=== PATIENT | female | born 1950 | race Caucasian/White ===

== ENCOUNTER 2022-01-03 08:40 | Emergency (ER) | payer OTHER, SELFPAY ==
[2022-01-03] VITALS (11 sets, daily range): BP systolic 128–149; BP diastolic 60–84; PULSE 49–68; RESP 20–22; O2SAT 96–100; BMI 22.1
--- NOTE | 2022-01-03 09:39 | ED.ABDPAIN ---
HPI - Abdominal Pain General Chief Complaint: Abdominal Pain Stated Complaint: Severe stomach pain 16 hours Time Seen by Provider: 01/03/22 09:39 Source: patient Mode of arrival: Ambulatory History of Present Illness HPI narrative: 71F former smoker with history of reflux presents with burning epigastric pain that started soon after eating about 16 hours ago. A few years ago she had similar symptoms and was placed on a 2 week course of a proton pump inhibitor and in the aftermath has been on Pepcid symptomatic Nathalie. For unknown reasons she stopped taking her Pepcid relatively recently and after eating last night her symptoms started very quickly. She tried taking some Pepcid last night and provided no relief. Additionally, she took some Mylanta and also provided no relief. She denies any radiation of her pain and no obvious other provocation or palliation. She has had nausea but denies any vomiting. She has had no change in bowel habits and no urinary complaints. She is not dizzy nor weak or lightheaded has no fever or chills. She otherwise denies any change in medications or diet. Related Data Previous Rx's Medication Instructions Recorded hydrocodone 5 mg-acetaminophen 325 1 tab PO Q4-6H PRN #10 tab 01/03/22 mg tablet ondansetron 4 mg disintegrating 4 mg PO TID-QID PRN #10 tab 01/03/22 tablet pantoprazole 40 mg tablet,delayed 40 mg PO DAILY #30 tab 01/03/22 release (Protonix) Allergies Allergy/AdvReac Type Severity Reaction Status Date / Time hydromorphone [HYDROMORPHONE] Allergy Unknown ITCHING Unverified 01/03/22 09:30 Penicillins [PENICILLINS] Allergy Unknown Unverified 01/03/22 09:30 Review of Systems Review of Systems Narrative: GENERAL: Denies chills, fatigue, malaise, fever, sweats. HEENT: Denies sinus pain, ear pain, sore throat, difficulty swallowing, dizziness. RESPIRATORY: Denies dyspnea, cough, wheezing, hemoptysis, sputum. CARDIOVASCULAR: Denies chest pain, palpitations, orthopnea, edema, GASTROINTESTINAL: See HPI : Denies dysuria, frequency, incontinence, hematuria, urinary retention. MUSCULOSKELETAL: denies weakness, joint pain, or bony pain SKIN: Denies rash, skin lesions, or other NEUROLOGIC: Denies weakness, headache, numbness, change in speech, confusion, seizures, incoordination. PSYCHIATRIC: No concerning psychosocial issues. 12 point review of systems is negative except for those stated above Patient History Social History Smoking Status: Former smoker Smoking Status: Former smoker alcohol intake frequency: 0-2 drinks per day Alcohol type: wine Substance Use Type: does not use Exam Narrative Exam Narrative: GENERAL: [71] year old patient appears stated age. Well-developed patient, in mild distress. HEAD: Atraumatic. Normocephalic. EYES: Pupils equal round and reactive. Extraocular motions intact. No scleral icterus. No injection or drainage. ENT: Nose without bleeding, purulent drainage. Throat without erythema, tonsillar hypertrophy or exudate. Airway patent. NECK: Trachea midline. Non tender CARDIOVASCULAR: Regular rate and rhythm without murmurs, gallops, or rubs. RESPIRATORY: Clear to auscultation. Breath sounds equal bilaterally. No wheezes, rales, or rhonchi. GASTROINTESTINAL: Abdomen soft, mild epigastric tenderness, nondistended. EXTREMITIES: No edema or joint tenderness. BACK: Nontender without deformity or crepitance. No flank tenderness. NEURO: AOx3. SKIN: No rash or erythema of visible areas Initial Vital Signs Initial Vital Signs: Vital Signs Pulse Rate 61 01/03/22 09:15 Respiratory Rate 22 01/03/22 09:15 Blood Pressure 131/84 01/03/22 09:15 Pulse Oximetry 100 01/03/22 09:15 Course Orders Ordered: Discontinued Medications Al Hydrox/Mg Hydrox/Simethicone 20 ml/ Lidocaine HCl 15 ml 0 ml PO NOW ONE Stop: 01/03/22 12:01 Last Admin: 01/03/22 12:15 Dose: 35 ml Documented by: RIVERA Sodium Chloride (Normal Saline 0.9%) 1,000 mls @ 1,000 mls/hr IV BOLUS ONE Stop: 01/03/22 11:08 Last Infusion: 01/03/22 13:22 Dose: 0 mls/hr Documented by: Admin: 01/03/22 10:45 Dose: 1,000 mls/hr Documented by: BLESSING Ketorolac Tromethamine (Ketorolac 30 Mg/Ml Vial) 15 mg IV NOW ONE Stop: 01/03/22 12:01 Last Admin: 01/03/22 12:28 Dose: 15 mg Documented by: RIVERA Pantoprazole Sodium (Pantoprazole 40 Mg Vial) 40 mg IV NOW ONE Stop: 01/03/22 10:10 Last Admin: 01/03/22 10:45 Dose: 40 mg Documented by: BLESSING Vital Signs Vital signs: Vital Signs - 8 hr 01/03/22 09:15 Pulse Rate 61 Respiratory Rate 22 Blood Pressure 131/84 Pulse Oximetry 100 MDM - Abdominal Pain Lab Data Result diagrams: 01/03/22 10:50 01/03/22 10:50 Labs: Lab Results 01/03/22 01/03/22 Range/Units 10:50 10:50 WBC 6.5 (4.5-11.0) X10^3/uL RBC 4.60 (4.0-5.2) X10^6/uL Hgb 13.6 (12.0-16.0) g/dL Hct 40.1 (36-46) % MCV 87.1 (80-100) fL MCH 29.6 (26-34) PG MCHC 34.0 (30-36) % RDW 14.0 (11.6-14.8) % Plt Count 296 (150-400) X10^3/uL Neut % (Auto) 74.4 (50-75) % Lymph % (Auto) 19.4 L (25-40) % Mcintosh % (Auto) 5.4 (3-14) % Eos % (Auto) 0.1 L (2-4) % Baso % (Auto) 0.7 (0-2) % Neut # (Auto) 4900 (8764-9264) /uL Lymph # (Auto) 1300 (8390-9139) /uL Mcintosh # (Auto) 400 (0-900) /uL Eos # (Auto) 0 (0-450) /uL Baso # (Auto) 0 (0-100) /uL Sodium 139 (137-145) mmol/L Potassium 4.0 (3.4-5.1) mmol/L Chloride 101 (98-107) mmol/L Carbon Dioxide 27 (22-32) mmol/L BUN 14 (7-17) mg/dL Creatinine 0.56 (0.52-1.04) mg/dL Estimated GFR > 60 (>60) mL/min BUN/Creatinine Ratio 25.0 H (6-22) Glucose 111 H (80-110) mg/dL Calcium 9.4 (8.4-10.2) mg/dL Total Bilirubin 0.5 (0.2-1.3) mg/dL AST 29 (14-36) IU/L ALT 30 (<35) IU/L Alkaline Phosphatase 85 (38-126) U/L Total Protein 8.3 H (6.3-8.2) g/dL Albumin 4.8 (3.5-5.0) g/dL Globulin 3.5 (1.7-4.1) g/dL Albumin/Globulin Ratio 1.4 (1.0-2.8) Lipase 35 (23-300) U/L Point of care testing: Urine Dip Bedside Urine Glucose Negative Bedside Urine Bilirubin - Negative Bedside Urine Ketone +++ 80 Urine Specific [place] 1.030 Bedside Urine Occult Blood + Bedside Urine pH 6.0 Bedside Urine Protein + 30 Bedside Urine Urobilinogen - Negative Bedside Urine Nitrite - Negative Bedside Urine Leukocytes +/- 15 Esterase Imaging Data US - abdomen: Radiologist's Impression: Launch?[place] [address] Ultrasound Report Signed Patient: Wendy Almendarez MR#: [id number] : 1950 Acct:[id number] Age/Sex: 71 / F Date of Service: 01/03/22 Loc: ED Accession Number: [id number] ?? Procedure: US abdomen limited Ordering Provider: Fabiano Hernandez D.O. PROCEDURE: US ABDOMEN LIMITED ? INDICATIONS:? severe epigastric pain ? TECHNIQUE:? Real-time focused scanning was performed of the abdomen, with image documentation.? ? COMPARISON:? [facility], [place], ABDOMEN COMPLETE, 06/25/2012, 1:08.? [facility], [place], ABDOMEN COMPLETE, 09/11/2014, 10:42.? [facility], [place], ABDOMEN/PELVIS WITH CONTRAST, 06/25/2012, 1:24. ? FINDINGS:? The liver is normal in size and demonstrates no focal lesions. ? No findings of gallstones or sludge are seen.? The gallbladder wall is not thickened, measuring 3 mm or less.? No specific pericholecystic fluid is seen.? The sonographic Dias sign is negative. ? There is no biliary dilatation, the common bile duct measures 6 mm.? ? No significant pancreatic abnormality is seen on these images.? IMPRESSION:? The gallbladder demonstrates a normal sonographic appearance. No biliary dilatation is seen. ? ? Dictated by: Mariusz Lyles M.D. on 01/03/2022 at 9:51 ? ? Approved by: Mariusz Lyles M.D. on 01/03/2022 at 9:56 ? ECG Data Interpretation: EKG is normal sinus rhythm rate [ 54] and free of any signs of ischemia or ectopy. No ST segmental elevation or depression. No T wave inversions MDM Narrative Medical decision making narrative: Multiple etiologies for patient's symptoms considered include, but not limited to: [Reflux versus peptic ulcer disease versus esophageal spasm versus pancreatitis versus gallbladder disease versus other Patient's symptoms improved over duration of stay with above-stated therapies. History, physical exam, labs, imaging, and response to therapies have been reassuring. Findings and discharge diagnosis discussed with patient/family followed by verbalization of understanding Return precautions discussed with patient/family whom verbalize understanding. Pain has been well controlled and patient is tolerating oral hydration. Discharge Plan Departure Patient Disposition: Home Clinical Impression: Abdominal pain, epigastric, Dyspepsia Instructions: DI for Epigastric Pain Activity Restrictions/Additional Instructions: *You have been diagnosed with [epigastric abdominal pain likely due to esophageal spasm, acid or reflux. As we discussed to therapies has been very reassuring. * As we discussed your history and physical exam as well as labs and imaging are very reassuring. There is no evidence of any severe diagnoses that would require a specific or immediate intervention. *What to do: *Please continue to take your regular medications as directed. [x ] New medication prescriptions sent to your pharmacy: [[facility] ] *Please follow up with your primary care provider in 2-3 days, call for an appointment. Let them know you were seen in the Emergency Department and that we ask that you be seen in follow up. We will electronically transmit a record of today's note if your PCP is in our system *Please consider a clear liquid diet for the next 24-48 hours and then slowly advance to regular as tolerated. Also, try to avoid alcohol, nicotine, caffeine, spicy, acidic or fatty foods as this may worsen your symptoms *If you do not have a primary care provider please contact the [facility] Resource line at [phone]. They will ask some questions about your medical history and help get you set up with a doctor in the community. *Return to Emergency Department if you should have any new, worsening or concerning symptoms, such as [fever greater than 101 F, shaking chills, worsening pain, persistent vomiting or other bothersome symptoms] You have been prescribed a short course of narcotic medications. These are potentially dangerous and addictive medications that should be used carefully. While on these medications you cannot drive or operate heavy machinery. Additionally, you cannot sign legal documents or perform any duties such as this. Many people get constipated on narcotic medications so it would be advisable to discuss stool softeners with the pharmacist when you package pick up your prescription. Please understand that we cannot provide further refills of narcotics or controlled substances through the ED and your pain management will need to be through your Primary Care Provider Prescriptions: New hydrocodone-acetaminophen 5-325 mg tablet 1 tab PO Q4-6H PRN (Reason: pain) Qty: 10 0RF pantoprazole [Protonix] 40 mg tablet,delayed release (DR/EC) 40 mg PO DAILY Qty: 30 0RF ondansetron 4 mg tablet,disintegrating 4 mg PO TID-QID PRN (Reason: nausea and vomiting) Qty: 10 0RF Referrals: Miscellaneous,Doctor, [Primary Care Provider] -
--- NOTE | 2022-01-03 10:10 | DI.US.S_ITS ---
PROCEDURE: US ABDOMEN LIMITED INDICATIONS: severe epigastric pain TECHNIQUE: Real-time focused scanning was performed of the abdomen, with image documentation. COMPARISON: [facility], [place], ABDOMEN COMPLETE, 06/25/2012, 1:08. [facility], [place], ABDOMEN COMPLETE, 09/11/2014, 10:42. [facility], [place], ABDOMEN/PELVIS WITH CONTRAST, 06/25/2012, 1:24. FINDINGS: The liver is normal in size and demonstrates no focal lesions. No findings of gallstones or sludge are seen. The gallbladder wall is not thickened, measuring 3 mm or less. No specific pericholecystic fluid is seen. The sonographic Dias sign is negative. There is no biliary dilatation, the common bile duct measures 6 mm. No significant pancreatic abnormality is seen on these images. IMPRESSION: The gallbladder demonstrates a normal sonographic appearance. No biliary dilatation is seen. Dictated by: Mariusz Lyles M.D. on 01/03/2022 at 9:51 Approved by: Mariusz Lyles M.D. on 01/03/2022 at 9:56
[2022-01-03] MEDS: SODIUM CHLORIDE 0.9% 1,000 ML 1000 ML IV (10:45)
[2022-01-03] MEDS: PANTOPRAZOLE 40 MG VIAL IV (10:45)
[2022-01-03 11:01] LABS: Add Manual Diff / Slide Review NO; Basophils Absolute Auto 0 /uL (0-100); Basophils Percent Auto 0.7 % (0-2); Eosinophils Absolute Auto 0 /uL (0-450); Eosinophils Percent Auto 0.1 % (2-4); Hematocrit 40.1 % (36-46); Hemoglobin 13.6 g/dL (12.0-16.0); Lymphocytes Absolute Auto 1300 /uL (1100-4500); Lymphocytes Percent Auto 19.4 % (25-40); Mean Corpuscular Hemoglobin 29.6 PG (26-34); Mean Corpuscular Volume 87.1 fL (80-100); Monocytes Absolute Auto 400 /uL (0-900); Monocytes Percent Auto 5.4 % (3-14); Neutrophils Absolute Auto 4900 /uL (1500-7000); Neutrophils Percent Auto 74.4 % (50-75); Platelet Count 296 X10^3/uL (150-400); White Blood Cell Count 6.5 X10^3/uL (4.5-11.0)
[2022-01-03 11:16] LABS: Alanine Aminotransferase 30 IU/L (<35); Albumin 4.8 g/dL (3.5-5.0); Albumin Globulin Ratio 1.4 (1.0-2.8); Alkaline Phosphatase 85 U/L (38-126); Aspartate Aminotransferase 29 IU/L (14-36); Bilirubin Total 0.5 mg/dL (0.2-1.3); Blood Urea Nitrogen 14 mg/dL (7-17); Calcium 9.4 mg/dL (8.4-10.2); Carbon Dioxide 27 mmol/L (22-32); Chloride 101 mmol/L (98-107); Estimated Glomerular Filt Rate > 60 mL/min (>60); Globulin 3.5 g/dL (1.7-4.1); Glucose 111 mg/dL (80-110); HEMOLYSIS < 15 (0-50); Lipase 35 U/L (23-300); Sodium 139 mmol/L (137-145); Total Protein 8.3 g/dL (6.3-8.2)
[2022-01-03] MEDS: MAG HYDROX/ALUMINUM/SIMETH SUS 20 ML, LIDOCAINE VISCOUS 2% 15 ML PO (12:15)
[2022-01-03] MEDS: KETOROLAC 30 MG/ML VIAL 15 MG IV (12:28)
== END 2022-01-03 16:10 | disposition home or self-care (01) ==
PROVIDERS: Emergency Provider Emergency Medicine
DX: R10.13 Epigastric pain (principal)
CPT/HCPCS: 36415; 76705; 80053; 81003; 83690; 85025; 93005; 96374; 96375; 99284; C9113; J1885

== ENCOUNTER 2023-01-14 19:51 | Emergency (ER) | payer OTHER, SELFPAY ==
[2023-01-14 20:04] VITALS: BP 119/67; PULSE 76; RESP 18; TEMP 36.4; O2SAT 98; BMI 22.3
--- NOTE | 2023-01-14 22:25 | ED.ALLEREA ---
HPI - Allergic Reaction General Chief complaint: Allergic Reaction Stated complaint: bee sting, swelling L/arm Time Seen by Provider: 01/14/23 22:18 Mode of arrival: Ambulatory History of Present Illness HPI narrative: Patient here with brother. Complaints of left hand and distal forearm swelling at the dorsal surface. Patient was stung by a bee, she did not recognize with hep B at 12:30 p.m. today. Since then she is taken 2 doses of Benadryl. The 1st 1 was 25 mg, the 2nd dose was 50 mg. Surgical pen was used to outline the edema margins on the dorsal surface of the left forearm. Patient states has been stung by bees many times before. Never had swelling like this before. It is not circumferential. Patient denies denies any trouble breathing no throat swelling or tightness no lip or oral swelling or trouble breathing or swallowing. No drooling. Related Data Previous Rx's Medication Instructions Recorded hydrocodone 5 mg-acetaminophen 325 1 tab PO Q4-6H PRN pain #10 tabs 01/03/22 mg tablet ondansetron 4 mg disintegrating 4 mg PO TID-QID PRN nausea and 01/03/22 tablet vomiting #10 tabs pantoprazole 40 mg tablet,delayed 40 mg PO DAILY #30 tabs 01/03/22 release (Protonix) famotidine 20 mg tablet (Pepcid) 20 mg PO BID #14 tabs 01/14/23 methylprednisolone 4 mg tablets in See Rx Instructions PO .COMPLEX 01/14/23 a dose pack (Medrol (Thong)) #21 ea Allergies Allergy/AdvReac Type Severity Reaction Status Date / Time hydromorphone [HYDROMORPHONE] Allergy Unknown ITCHING Verified 01/14/23 22:33 Penicillins [PENICILLINS] Allergy Unknown Verified 01/14/23 22:33 Review of Systems Review of Systems Narrative: GENERAL: negative chills, fatigue, malaise, fever, sweats. HEENT: negative sinus pain, ear pain, sore throat RESPIRATORY: negative dyspnea, cough CARDIOVASCULAR: negative chest pain, palpitations GASTROINTESTINAL: negative nausea, vomiting, abdominal pain : negative dysuria, frequency, hematuria MUSCULOSKELETAL: negative muscle or bony pain SKIN: Positive edema and rash, negative skin lesions NEUROLOGIC: negative weakness, numbness ROS Unobtainable: All systems reviewed & are unremarkable except as noted in HPI and below Patient History Social History Smoking Status: Former smoker Smoking Status: Former smoker alcohol intake frequency: 0-2 drinks per day Alcohol type: wine Substance Use Type: does not use Exam Narrative Exam Narrative: GENERAL: in no distress, not toxic not dyspneic HEAD: Normocephalic. EYES: Pupils equal round ENT: Mucous membranes moist. No lip swelling no tongue swelling no malocclusion or trismus. No tongue elevation no drooling. NECK: Trachea midline. No stridor CARDIOVASCULAR: Regular rate and rhythm without murmurs RESPIRATORY: Clear to auscultation. Breath sounds equal bilaterally. No wheezes, rales, or rhonchi. GASTROINTESTINAL: Abdomen soft, non-tender EXTREMITIES: No gross deformities. Examination left upper extremity. There is edema erythema to the dorsum of the hand and distal 3rd of the dorsal forearm. It is not circumferential. Strong radial pulse light touch intact to thumb and fingers. No crepitus. No pain out of proportion to exam. No necrotic tissue. Do not see a stinger sac at the injections site of the dorsum of the hand. NEURO: AOx4. SKIN: Warm and dry PSYCH: Not anxious, is cooperative Initial Vital Signs Initial Vital Signs: Vital Signs Temperature 97.6 F 01/14/23 20:04 Pulse Rate 76 01/14/23 20:04 Respiratory Rate 18 01/14/23 20:04 Blood Pressure 119/67 01/14/23 20:04 Pulse Oximetry 98 01/14/23 20:04 Oxygen Delivery Method Room Air 01/14/23 20:04 Course Orders Ordered: Discontinued Medications Famotidine (Famotidine 20 Mg Tablet) 20 mg PO NOW ONE Stop: 01/14/23 22:26 Last Admin: 01/14/23 22:35 Dose: 20 mg Documented By: SB Prednisone (Prednisone 20 Mg Tablet) 60 mg PO NOW ONE Stop: 01/14/23 22:25 Last Admin: 01/14/23 22:34 Dose: 60 mg Documented By: SB Vital Signs Vital signs: Vital Signs - 8 hr 01/14/23 20:04 01/14/23 22:54 Temperature 97.6 F Pulse Rate 76 71 Respiratory Rate 18 16 Blood Pressure 119/67 116/61 Pulse Oximetry 98 96 Oxygen Delivery Method Room Air Room Air MDM - Allergic Reaction MDM Narrative Medical decision making narrative: Patient here with brother. Complaints of left hand and distal forearm swelling at the dorsal surface. Patient was stung by a bee, she did not recognize with hep B at 12:30 p.m. today. Since then she is taken 2 doses of Benadryl. The 1st 1 was 25 mg, the 2nd dose was 50 mg. Surgical pen was used to outline the edema margins on the dorsal surface of the left forearm. Patient states has been stung by bees many times before. Never had swelling like this before. It is not circumferential. Patient denies denies any trouble breathing no throat swelling or tightness no lip or oral swelling or trouble breathing or swallowing. No drooling. After history and exam prednisone Pepcid MDM CC: Bee sting Complicating co-morbidities: None Data collected from: Patient Medical records reviewed: No recent visits for this complaint Differential considered: Includes but not limited to cellulitis bee sting allergic reaction Exam documented above, pertinent findings include: Edema erythema to the dorsum of the hand and forearm Lab Test results independently reviewed as above. Pertinent findings: None required Imaging studies independently reviewed: None required Treatments: Prednisone Pepcid Re-evaluations: Reviewed exam with patient. This is reassuring as no respiratory complaints or oral swelling. Instructed patient to keep hand and arm elevated to reduce swelling. No signs of compartment syndrome. Return precautions reviewed with her. She is comfortable with observation at home. Return precautions reviewed with her. She desires discharge home Discussion: Appropriate for discharge home. No signs of compartment syndrome. No necrotic tissue. No cellulitis. No respiratory complaints. Airway intact. Prednisone Pepcid started here. Prescriptions provided. Return precautions reviewed with patient. She desires discharge home. Diagnosis: Bee sting reaction Discharge Plan Departure Patient Disposition: Home Clinical Impression: Bee sting Instructions: DI for Insect Bites and Stings Activity Restrictions/Additional Instructions: Please continue steroid pack tomorrow. Prescription has been sent to your pharmacy. As well as Pepcid to help for inflammation. Continue [id number] Benadryl tell for any itching. Return immediately if increased swelling beyond the ink brooke pen margins. Return immediately if any trouble breathing or if any throat tightness or any oral swelling. See family doctor within a week for re-evaluation. Return if worse if any questions or concerns. Prescriptions: New methylprednisolone [Medrol (Thong)] 4 mg tablets,dose pack See Rx Instructions .ROUTE .COMPLEX Qty: 21 0RF Rx Instructions: orally per package directions famotidine [Pepcid] 20 mg tablet 20 mg PO BID Qty: 14 0RF No Action hydrocodone-acetaminophen 5-325 mg tablet 1 tab PO Q4-6H PRN (Reason: pain) Qty: 10 0RF pantoprazole [Protonix] 40 mg tablet,delayed release (DR/EC) 40 mg PO DAILY Qty: 30 0RF ondansetron 4 mg tablet,disintegrating 4 mg PO TID-QID PRN (Reason: nausea and vomiting) Qty: 10 0RF Referrals: Miscellaneous,Doctor, MD [Primary Care Provider] - Stand Alone Forms: Patient Portal/API
[2023-01-14] MEDS: predniSONE 20 MG TABLET 60 MG PO (22:34)
[2023-01-14] MEDS: FAMOTIDINE 20 MG TABLET PO (22:35)
[2023-01-14 22:54] VITALS: BP 116/61; PULSE 71; RESP 16; O2SAT 96
== END 2023-01-14 22:55 | disposition home or self-care (01) ==
PROVIDERS: Emergency Provider Emergency Medicine
DX: T63.441A Toxic effect of venom of bees, accidental (unintentional), initial encounter (principal)
CPT/HCPCS: 99283; A9270

== ENCOUNTER → 2025-04-23 07:52 | Outpatient (CLI) | payer OTHER, SELFPAY ==
[2025-04-23 09:13] LABS: Alanine Aminotransferase 30 IU/L (<35); Albumin 4.2 g/dL (3.5-5.0); Albumin Globulin Ratio 1.5 (1.0-2.8); Alkaline Phosphatase 61 U/L (38-126); Blood Urea Nitrogen 18 mg/dL (7-17); Calcium 9.4 mg/dL (8.4-10.2); Carbon Dioxide 27 mmol/L (22-32); Chloride 104 mmol/L (98-107); Cholesterol 301 mg/dL (140-199); Estimated Glomerular Filt Rate > 60 mL/min (>60); Globulin 2.8 g/dL (1.7-4.1); Glucose 97 mg/dL (70-99); HDL Cholesterol 90 mg/dL (40-60); HEMOLYSIS < 15 (0-50); Potassium 4.4 mmol/L (3.4-5.1); Sodium 138 mmol/L (137-145); Total Protein 7.0 g/dL (6.3-8.2); Triglycerides 68 mg/dL (35-150)
[2025-04-24 04:36] LABS: CRP, High Sensitivity 1.17 mg/L (0.00-3.00)
[2025-04-25 07:09] LABS: Insulin Level Total 6.5 uIU/mL (2.6-24.9)
== END ==
PROVIDERS: Family Provider Family Medicine; PCP Family Medicine; Referring Provider Family Medicine; Visit Provider Family Medicine
DX: E78.5 Hyperlipidemia, unspecified (principal)
CPT/HCPCS: 36415; 80053; 80061; 83525; 86140